=== PATIENT | female | born 1945 | race Caucasian/White ===

== ENCOUNTER 2016-12-09 10:14 | Emergency (ER) | payer MEDICARE, OTHER ==
--- NOTE | 2016-12-09 10:38 | ERNOTE ---
Chest Pain/Cardiac HPI Chief Complaint: Palpitations Time Seen by Provider: 12/09/16 10:15 Source: patient Exam Limitations: no limitations Immunizations: IMMUNIZATION HX Immunizations Up to Date Yes Allergies/Adverse Reactions: Allergies methylprednisolone [From Medrol] Adverse Reaction (Mild, Verified 12/09/16 10:22 ) ULCER Home Medications: HOME MEDICATIONS Aspirin [Aspirin Enteric Coated] 81 mg PO DAILY 11/02/14 [Last Taken Unknown] Calcium Carbonate/Vitamin D3 [Calcium 600 + D Tablet] 1 each PO BID 11/02/14 [ Last Taken Unknown] Glucosamine/Chondroitin Sulf A [Glucosamine Chondroitin Cap] 1 each PO DAILY 06/14 [Last Taken Unknown] Multivitamins [Multivitamin Deion] 1 cap PO DAILY 11/02/14 [Last Taken Unknown] Narrative: Patient has had intermittent palpitations since this morning. She feels her heart beating fast and irregular for a few minutes at a time, slight cough improves the feeling, no other associated symptoms. She recently saw her doctor for left lower abdominal pain after a bout of diarrhea, she is being treated with a prednisone taper for possible colitis, colonoscopy two year ago was normal, no abdominal pain currently, loose BM this morning, about 10-15lbs weight loss over the last six months after changing her diet. Date (Duration): 12/09/16 Time (Timing): 06:00 Review of Systems - Review of Systems Constitutional: Present: See HPI, recent illness, weight loss. Absent: fever ENT: Absent: nose congestion, nasal drainage, sore throat Respiratory: Present: cough - minimal with palpitation only. Absent: shortness of breath Cardiology: Present: See HPI, palpitations. Absent: chest pain, syncope Gastrointestinal/Abdominal: Present: See HPI. Absent: nausea, vomiting, abdominal pain Genitourinary: Present: no symptoms reported Musculoskeletal: Present: no symptoms reported Skin: Absent: rash Neurological: Absent: headache, weakness, numbness Psych: Present: no symptoms reported - Patient's Past Medical History Patient History - Medical: Arthritis, Headache, Other Patient History - Cardiac/Respiratory: Bronchitis, Pneumonia Patient History - Cancer: Skin Patient History - Surgical Procedures: Appendectomy, Colonoscopy, D & C, Hysterectomy, Other Patient History - Other: None - Social History Living Situations: home Abuse History: No History of abuse Psych History: No pertinent hx Smoking Status: Former smoker Alcohol Use: rarely Drug Use: none - Immunizations Immunizations Up to Date: Yes Hx Pneumococcal Vaccination: Yes History of Influenza Vaccine: Yes Physical Exam - Physical Exam General Appearance: Present: wd/wn, alert, no apparent distress, anxious Head Exam: Present: normal inspection Eye Exam: Normal inspection: bilateral, PERRL: bilateral Neck: Present: other - prominent thyroid Respiratory: Present: no respiratory distress, normal breath sounds, no accessory muscle use, lungs clear Cardiovascular/Chest: Present: regular rate, rhythm, no murmur, normal peripheral pulses Gastrointestinal/Abdominal: Present: normal bowel sounds, nontender, nondistended, soft Extremity Exam: Present: no edema Neurological Exam: Present: alert, oriented, normal mood/affect Skin Exam: Present: normal color, warm/dry ED Progress - Results and Orders Patient's Lab Results:: I have reviewed the patient's lab results. - Vital Signs Patient's Vital Signs:: I have reviewed the patient's vital signs. Vital Signs: Vital Signs 12/09/16 12/09/16 10:19 10:22 Temperature 36.0 C L Pulse Rate 93 80 Respiratory 12 Rate Blood Pressure 174/79 O2 Sat by Pulse 99 Oximetry - EKG EKG: NSR, unchanged from - 2011, other - no acute changes EKG read: Interp. by me - X-Ray X-Ray #1 X-Ray: chest - hyperinflated, granulomas, no acute changes Interpretation: Interp. by me - Progress/Reassessment Chief Complaint: Palpitations Progress Note-Subjective: 12/09/16 11:41 discussed test results with patient, has follow up with Dr Buck scheduled, if symptoms persist consider getting holter monitor, patient is much calmer now, normal BP, no more symptoms while here Departure - Departure Clinical Impression: Heart palpitations Disposition: Home self-care Condition: Good Instructions: Palpitations, [id number] Additional Instructions: follow up with Dr Buck as scheduled, if the palpitations persist call his office as you might need a holter monitor Referrals: Aly Buck MD [Primary Care Provider] -
[2016-12-09 10:51] LABS: Hematocrit 35.7 % (37.0-47.0); Hemoglobin 12.1 gm/dL (12.5-16.0); Mean Cell Volume 94.9 fl (78-100); Mean Corpuscular Hemoglobin 32.2 pg (27-31); Mean Corpuscular Hgb Conc 33.9 g/dl (32-36); Mean Platelet Volume 8.5 fl (6.0-9.5); Neutrophil # 5.4 K/mm3 (1.3-6.0); Neutrophil % 71.5 % (42-75.0); Platelet Count 296 K/mm3 (150-450); Red Blood Count 3.76 M/mm3 (4.2-5.4); Red Cell Distribution Width 13.1 % (11.5-14.0); White Blood Count 7.6 K/mm3 (4.0-10.5)
[2016-12-09 11:08] LABS: Troponin I Less than 0.017 ng/ml (0.00-0.10)
[2016-12-09 11:12] LABS: ALT 17 U/L (19-67); AST 14 U/L (0-48); Albumin * 3.5 gm/dl (3.4-5.0); Alkaline Phosphatase * 69 U/L (50-170); Anion Gap 14.2 mmol/L (6.8-13.8); BUN/Creatinine Ratio 23.5 (9.0-21.6); Bilirubin, Total 0.3 mg/dL (0.0-1.1); Blood Urea Nitrogen 19 mg/dL (3-23); Ca. Corrected For Albumin 9.3 mg/dL (8.4-10.2); Calcium * 9.2 mg/dL (7.9-10.9); Carbon Dioxide 26.7 mmol/L (24-32.6); Chloride 103 mmol/L (97-106); Glucose * 112 mg/dL (70-110); Potassium 3.9 mmol/L (3.4-4.6); Sodium 140 mmol/L (132-142); TSH * 2.292 uIU/mL (0.358-3.74); Total Protein 6.9 gm/dL (6.2-8.2)
[2016-12-09 11:44] VITALS: BP 114/63
== END 2016-12-09 11:45 | disposition home or self-care (01) ==
LOC: ER 10:14
DX: R00.2 Palpitations (principal); Z85.828 Personal history of other malignant neoplasm of skin; Z87.891 Personal history of nicotine dependence